=== PATIENT | female | born 1950 | race Caucasian/White ===

== ENCOUNTER 2022-04-08 05:51 | Inpatient (IN) | payer OTHER, MEDICARE ==
[2022-04-07 16:18] VITALS: BMI 42.0
[2022-04-08] MEDS ORDERED: BUPIVACAINE HCL 50 ML ONE (07:11)
[2022-04-08] MEDS ORDERED: ACETAMINOPHEN INJECTION 100 ML IVPB ONE (07:12)
[2022-04-08] MEDS ORDERED: KETOROLAC TROMETHAMINE 30 MG/1 ML VIAL ONE (07:18)
[2022-04-08] MEDS ORDERED: ceFAZolin SODIUM 1 GM VIAL ONE ×2 (07:18→10:47)
[2022-04-08] MEDS ORDERED: PROPOFOL 80 ML ONE (07:19)
[2022-04-08] MEDS ORDERED: MIDAZOLAM HCL 2 MG/2 ML SINGLE DOSE VIAL ONE (07:19)
[2022-04-08] MEDS ORDERED: KETAMINE HCL 200 MG/20 ML VIAL ONE (07:19)
[2022-04-08] MEDS ORDERED: DEXAMETHASONE SOD PHOSPHATE/PF 10 MG/ML SDV ONE (07:51)
[2022-04-08] MEDS ORDERED: BUPIVACAINE HCL/PF 0.5% (5 MG/ML) 30 ML VIAL IJ ONE (07:51)
[2022-04-08] MEDS ORDERED: VANCOMYCIN 1,000 MG VIAL (RESTRICTED TO ID ONLY) ONE (08:48)
[2022-04-08] MEDS ORDERED: TRANEXAMIC ACID 1000 MG/10 ML VIAL ONE ×2 (08:48→10:15)
[2022-04-08] MEDS ORDERED: ONDANSETRON 4 MG/2 ML VIAL ONE (09:03)
[2022-04-08] MEDS ORDERED: PROPOFOL 20 ML ONE ×3 (10:23→11:44)
[2022-04-08] MEDS ORDERED: PHENYLEPHRINE HCL 10 MG/1 ML SINGLE DOSE VIAL ONE (10:24)
[2022-04-08] MEDS ORDERED: MAG HYDROX/AL HYDROX/SIMETH 30 ML UNIT-DOSE CUP PO PRN (11:56)
[2022-04-08] MEDS ORDERED: MAGNESIUM HYDROX 2400MG/30ML ORAL SUSPENSION 30 ML CUP PO PRN (11:56)
[2022-04-08] MEDS ORDERED: PATIENT'S OWN MEDICATION (NON-FORMULARY) (Alendronate Sodium [Fosamax] 70 MG Tablet) PO SCH (12:00)
[2022-04-08] MEDS ORDERED: PATIENT'S OWN MEDICATION (NON-FORMULARY) (Spironolactone [Aldactone] 50 MG Tablet) PO SCH (12:00)
[2022-04-08] MEDS ORDERED: PATIENT'S OWN MEDICATION (NON-FORMULARY) (Esomeprazole Magnesium [Nexium 24hr] 20 MG Table PO SCH (12:00)
[2022-04-08] MEDS ORDERED: LACTATED RINGERS SOLUTION 1,000 ML IV SCH ×2 (12:00→12:15)
[2022-04-08] MEDS ORDERED: oxyCODONE HCL 5 MG TABLET PO PRN ×3 (12:14→12:35)
[2022-04-08] MEDS ORDERED: FENTANYL CITRATE/PF 50 MCG/ML VIAL ONE (12:22)
[2022-04-08] MEDS ORDERED: ACETAMINOPHEN 325 MG TABLET (FP) PO PRN (15:00)
[2022-04-08] MEDS: CEFAZOLIN SODIUM 2 GM in DEXTROSE 5%-WATER 100 ML IVPB SCH ×2 (16:37→22:11)
[2022-04-08] MEDS: NYSTATIN POWDER 100,000 UNITS/GM - 15 GM TOPICAL POWDER TP SCH (17:08)
[2022-04-08] MEDS: CELECOXIB 100 MG CAPSULE PO SCH (22:11)
[2022-04-08] MEDS: ATORVASTATIN CA 10 MG TABLET (FP) PO SCH (22:12)
[2022-04-08] MEDS: SENNOSIDES/DOCUSATE COMBO (SENNA PLUS) TABLET (UD) PO SCH (22:12)
[2022-04-08] MEDS: ASPIRIN COATED 81 MG TABLET.EC PO SCH (22:12)
[2022-04-08] MEDS: metFORMIN HCL 500 MG TABLET (FP) PO SCH (22:12)
[2022-04-08] MEDS: oxyCODONE HCL 5 MG TABLET PO PRN (22:13)
[2022-04-09] MEDS: CEFAZOLIN SODIUM 2 GM in DEXTROSE 5%-WATER 100 ML IVPB SCH (03:03)
[2022-04-09] MEDS: LEVOTHYROXINE NA 125 MCG TABLET (FP) PO SCH (06:36)
[2022-04-09] MEDS: oxyCODONE HCL 5 MG TABLET PO PRN (08:15)
[2022-04-09 08:25] LABS: CALCIUM 8.7 mg/dl (8.5-10); CREATININE 0.9 mg/dl (0.55-1.3)
[2022-04-09 08:28] LABS: HEMATOCRIT 29.8 % (32.4-45.2); HEMOGLOBIN 9.8 G/dL (10.7-15.3); MCH 30.6 pg (25.7-33.7); MEAN CELL VOLUME 92.8 fl (80-96); MEAN PLT VOLUME 8.9 fl (7.5-11.1); PLATELET COUNT 303.9 10^3/uL (134-434); RBC 3.21 10^6/uL (3.60-5.2); RDW 13.5 % (11.6-15.6); WHITE BLOOD COUNT 15.5 10^3/uL (4.0-10.8)
[2022-04-09] MEDS: CELECOXIB 100 MG CAPSULE PO SCH ×2 (09:10→21:32)
[2022-04-09] MEDS: ASPIRIN COATED 81 MG TABLET.EC PO SCH ×2 (09:10→21:33)
[2022-04-09] MEDS: PANTOPRAZOLE 40 MG TABLET PO SCH (09:10)
[2022-04-09] MEDS: SENNOSIDES/DOCUSATE COMBO (SENNA PLUS) TABLET (UD) PO SCH ×2 (09:10→21:33)
[2022-04-09] MEDS: LISINOPRIL 20 MG TABLET PO SCH (09:11)
[2022-04-09] MEDS: NYSTATIN POWDER 100,000 UNITS/GM - 15 GM TOPICAL POWDER TP SCH (09:11)
[2022-04-09] MEDS ORDERED: PATIENT'S OWN MEDICATION (NON-FORMULARY) (Lisinopril [Lisinopril] 30 MG Tablet) PO SCH (10:00)
[2022-04-09] MEDS ORDERED: PHENTERMINE HCL 37.5 MG PO SCH (10:00)
[2022-04-09] MEDS: ONDANSETRON 4 MG/2 ML VIAL IVPUSH PRN ×2 (12:39→18:23)
[2022-04-09] MEDS: ATORVASTATIN CA 10 MG TABLET (FP) PO SCH (21:33)
[2022-04-09] MEDS: metFORMIN HCL 500 MG TABLET (FP) PO SCH (21:33)
[2022-04-10] MEDS: LEVOTHYROXINE NA 125 MCG TABLET (FP) PO SCH (06:24)
[2022-04-10 08:32] LABS: HEMATOCRIT 26.9 % (32.4-45.2); MCH 30.8 pg (25.7-33.7); MCHC 33.5 g/dl (32.0-36.0); MEAN CELL VOLUME 91.9 fl (80-96); MEAN PLT VOLUME 8.8 fl (7.5-11.1); PLATELET COUNT 290.3 10^3/uL (134-434); RBC 2.93 10^6/uL (3.60-5.2); RDW 13.8 % (11.6-15.6)
[2022-04-10] MEDS: SENNOSIDES/DOCUSATE COMBO (SENNA PLUS) TABLET (UD) PO SCH (09:08)
[2022-04-10] MEDS: NYSTATIN POWDER 100,000 UNITS/GM - 15 GM TOPICAL POWDER TP SCH (09:08)
[2022-04-10] MEDS: CELECOXIB 100 MG CAPSULE PO SCH (09:09)
[2022-04-10] MEDS: PANTOPRAZOLE 40 MG TABLET PO SCH (09:09)
[2022-04-10] MEDS: ASPIRIN COATED 81 MG TABLET.EC PO SCH (09:09)
[2022-04-10] MEDS: LISINOPRIL 20 MG TABLET PO SCH (09:12)
[2022-04-10] MEDS ORDERED: SPIRONOLACTONE 25 MG TABLET PO SCH (10:00)
[2022-04-10 14:03] VITALS: BP 91/57; PULSE 68; RESP 17; TEMP 99
[2022-04-11] MEDS ORDERED: PATIENT'S OWN MEDICATION (NON-FORMULARY) (Semaglutide [Ozempic] 0.25 MG/0.2 ML Pen.Injctr) SQ SCH (10:00)
== END 2022-04-10 17:41 | disposition home or self-care (01) | DRG 470 ==
LOC: FM/S 05:51
PROVIDERS: ADMIT Orthopaedic Surgery Orthopaedic Surgery of the Spine; ATTEND Orthopaedic Surgery Orthopaedic Surgery of the Spine
PROC: 0SRB0JZ Replacement of Left Hip Joint with Synthetic Substitute, Open Approach (ICD-10-PCS; principal; 2022-04-08 09:48)
DX: M16.12 Unilateral primary osteoarthritis, left hip (principal); I10 Essential (primary) hypertension; E11.9 Type 2 diabetes mellitus without complications; E03.9 Hypothyroidism, unspecified
CPT/HCPCS: 36415; 73502-TC-LT-FY; 80048; 82962; 85027; 88305-TC; 88311-TC; 94760; 97010-GP; 97116-GP; 97162-GP; C1776; C1889; C9803-CS; U0003; U0005